=== PATIENT | female | born 1975 | race Caucasian/White ===

== ENCOUNTER 2022-10-30 10:09 | Outpatient (CLI) | payer BC, SELFPAY ==
[2022-10-30 13:46] LABS: Chloride* 98 mmol/L (96-114); Potassium* 4.9 mmol/L (3.6-5.1); Sodium* 136 mmol/L (135-149)
[2022-10-30 13:48] LABS: Alanine Aminotransferase* 30 U/L (4-35); Blood Urea Nitrogen* 16 mg/dL (5-24); Carbon Dioxide* 29 mmol/L (20-32); Cholesterol* 180 mg/dL (90-199); Creatinine* 0.5 mg/dL (0.5-1.5); Estimated Glomerular Filt Rate 119 ml/min
[2022-10-30 13:49] LABS: Calcium* 9.8 mg/dL (8.4-10.6); Glucose* 142 mg/dL (60-115); HDL Cholesterol* 49 mg/dL (>=50); LDL Cholesterol Calculated 84 mg/dL (<100); Triglycerides* 236 mg/dL (40-149)
== END 2022-10-30 10:10 | disposition home or self-care (01) ==
PROVIDERS: Visit Provider Family Medicine
DX: E03.9 Hypothyroidism, unspecified (principal); I10 Essential (primary) hypertension; E78.5 Hyperlipidemia, unspecified; E11.9 Type 2 diabetes mellitus without complications; E55.9 Vitamin D deficiency, unspecified; E78.2 Mixed hyperlipidemia
CPT/HCPCS: 80048; 80061; 84443; 84460

== ENCOUNTER 2023-01-16 10:03 | Outpatient (CLI) | payer BC, SELFPAY ==
--- NOTE | 2023-01-16 10:15 | CRLHL7_ITS ---
For Patients: As a result of the Century Cures Act, medical imaging exams and procedure reports are released immediately into your electronic medical record. You may view this report before your referring provider. If you have questions, please contact your health care provider. BILATERAL SCREENING MAMMOGRAM WITH COMPUTER-AIDED DETECTION TECHNIQUE: CC and MLO views were obtained. These mammographic images have been obtained using full-field digital technique. These mammographic images were interpreted with the benefit of computer-aided detection. COMPARISON FILM: 02/22/2021, 01/16/2018. FINDINGS: There are scattered areas of fibroglandular density IMPRESSION: There is no radiographic evidence for malignancy. ASSESSMENT: BI-RADS Category 1: Negative RECOMMENDATION: Routine screening mammogram in 1 year. A lay language report of this examination will be provided to the patient. Tito Aguila M.D. Diagnostic/Nuclear Medicine Radiologist [email or web address] FAUZIA/Dictated by: Tito Aguila MD @ 01/16/2023 11:30:00 AM (Electronically Signed)
== END 2023-01-16 10:04 | disposition home or self-care (01) ==
LOC: MAMMO 10:04
PROVIDERS: Visit Provider Family Medicine
DX: Z12.31 Encounter for screening mammogram for malignant neoplasm of breast (principal)
CPT/HCPCS: 77063; 77067

== ENCOUNTER 2023-04-25 08:58 | Outpatient (CLI) | payer BC, SELFPAY ==
--- NOTE | 2023-04-25 09:15 | CRLHL7_ITS ---
For Patients: As a result of the Century Cures Act, medical imaging exams and procedure reports are released immediately into your electronic medical record. You may view this report before your referring provider. If you have questions, please contact your health care provider. HISTORY: Right knee pain. TECHNIQUE: Noncontrast MRI of the right knee. COMPARISON: Radiographs from 04/17/2023. FINDINGS: Medial compartment: Medial meniscus: There are sequelae of prior tearing of the posterior horn of the medial meniscus with the tear spanning an approximately 13 mm medial/lateral extent of the meniscus with associated meniscal attenuation and fraying. Tear is noted on coronal STIR image #23 of series 5 and sagittal T2 fat-sat image #20 of series 10 for example. The meniscal tear results in loss of meniscal hoop stress with severe medial extrusion of medial meniscal body. Anterior horn of meniscus closer to the root is frayed. Articular cartilage: Marginal osteophyte formation. There is high-grade medial femoral condyle articular cartilage wear (grade 3/4). Full-thickness cartilage loss involving medial tibial plateau medially with subchondral bone marrow edema (grade 4). - Lateral compartment: Lateral meniscus: Degenerative undersurface and free edge meniscal tearing of the posterior horn of the lateral meniscus extending towards the posterior horn root. There is some low signal tissue present posterior to the posterior horn of lateral meniscus on sagittal T2 fat-sat #10 of series 10 which may reflect a small displaced meniscal flap. Articular cartilage: Marginal osteophyte formation. There is high-grade cartilage loss involving the lateral femoral condyle and lateral tibial plateau (grade 3/4). - Patellofemoral compartment: Marginal osteophyte formation with high-grade chondromalacia within the patellofemoral compartment (grade 3). - Ligaments: Mucoid degeneration of the ACL. Posterior cruciate ligament intact. Medial collateral ligament intact. Lateral collateral complex intact. - Extensor mechanism: Distal quadriceps tendon is intact. Minor tendinosis of the proximal and distal aspects of the patellar tendon. Medial and lateral patellar restraints are intact. No patellar subluxation or edmar. - Joint space: Small joint effusion with synovitis. - Bones and soft tissues: No acute fracture or avascular necrosis. 3.6 x 1.4 x 2.4 cm popliteal cyst is present. There is subcutaneous edema. IMPRESSION: 1. Advanced degenerative arthrosis of the right knee with areas of full-thickness grade 4 cartilage abnormality. 2. Tearing of the posterior horn of the medial meniscus with loss of meniscal hoop stress. 3. Tearing of the posterior horn of the lateral meniscus. 4. Mucoid degeneration of the ACL. 5. Small knee joint effusion with synovitis. 6. Popliteal cyst. Dictated by Jovanni Thakkar MD @ 04/25/2023 3:36:14 PM (Electronically Signed)
== END 2023-04-25 08:59 | disposition home or self-care (01) ==
LOC: MRI 08:59
PROVIDERS: PCP Family Medicine; Visit Provider Family Medicine
DX: M25.561 Pain in right knee (principal); M17.11 Unilateral primary osteoarthritis, right knee; S83.241A Other tear of medial meniscus, current injury, right knee, initial encounter; S83.281A Other tear of lateral meniscus, current injury, right knee, initial encounter; M25.461 Effusion, right knee; M71.21 Synovial cyst of popliteal space [Baker], right knee
CPT/HCPCS: 73721

== ENCOUNTER 2023-06-10 11:25 | Outpatient (CLI) | payer BC, SELFPAY | END 2023-06-10 11:26 | disposition home or self-care (01) | PROVIDERS: PCP Family Medicine; Visit Provider Family Medicine | DX: Z01.818 Encounter for other preprocedural examination (principal) | CPT/HCPCS: 80048; 85025 ==

== ENCOUNTER 2023-06-12 09:30 | Outpatient (RCR) | payer BC, SELFPAY | END 2023-09-26 11:21 | disposition home or self-care (01) | PROVIDERS: PCP Family Medicine; Visit Provider Orthopaedic Surgery | DX: M17.11 Unilateral primary osteoarthritis, right knee (principal); M25.561 Pain in right knee; Z51.89 Encounter for other specified aftercare | CPT/HCPCS: 97161 ==

== ENCOUNTER 2023-06-17 08:17 | Day surgery (SDC) | payer BC, SELFPAY ==
[2023-06-17] VITALS (24 sets, daily range): BP systolic 86–118; BP diastolic 49–72; PULSE 69–95; RESP 12–16; TEMP 36.1–36.8; O2SAT 91–98; BMI 41.5
[2023-06-17] MEDS: CELECOXIB 200 MG CAPSULE PO (08:01)
[2023-06-17] MEDS: ACETAMINOPHEN 500 MG TABLET 1000 MG PO ×3 (08:01→22:24)
[2023-06-17] MEDS: OXYCODONE (CR) 10 MG TAB.ER.12H PO (08:01)
[2023-06-17] MEDS: LACTATED RINGERS 1000 ML 1,000 ML 100 ML IV ×2 (09:05→10:25)
--- NOTE | 2023-06-17 09:25 | SUR.PREOP ---
TIME?OUT:?924 PT/RN/MDA?VERIFICATION?OF?SURGICAL?SITE,?PROCEDURE,?AND?CONSENT OBTAINED?PRIOR?TO?INVASIVE?PROCEDURE.
[2023-06-17] MEDS: fentaNYL 100 MCG/2 ML inj IVP (09:26)
[2023-06-17] MEDS: MIDAZOLAM HCL 1 MG/ML inj IVP (09:26)
[2023-06-17] MEDS: CEFAZOLIN 2 GM INJ IVP (09:45)
[2023-06-17] MEDS: TRANEXAMIC ACID 100 MG/ML INJ 1000 MG IV (09:50)
--- NOTE | 2023-06-17 10:07 | SUR.OPER ---
PATIENT QUESTIONS ANSWERED SATISFACTORILY PREOPERATIVELY.? PATIENT BROUGHT TO OR #2 PER CART AFTER ADMINISTRATION OF A BLOCK.? Patient positioned supine on OR #2 bed.? The perioperative?team supported arms bilaterally on arm boards.? Final approval of positioning by surgeon.?
--- NOTE | 2023-06-17 11:06 | CRLHL7_ITS ---
For Patients: As a result of the Century Cures Act, medical imaging exams and procedure reports are released immediately into your electronic medical record. You may view this report before your referring provider. If you have questions, please contact your health care provider. INDICATION: Follow up a right knee arthroplasty. TECHNIQUE: Two portable postoperative views of the right knee. FINDINGS: Right knee arthroplasty. Patellar resurfacing. The components are adequately aligned and well seated. Air within the soft tissues and joint space related to the surgery. IMPRESSION: Postsurgical change from a right total knee arthroplasty. The components are adequately aligned and well seated. Dictated by Tito Aguila MD @ 06/17/2023 12:11:01 PM (Electronically Signed)
--- NOTE | 2023-06-17 11:07 | PM.ORPRC ---
Procedure Note Date of procedure: 06/17/23 Procedure: PREOPERATIVE DIAGNOSIS: Right knee osteoarthritis POSTOPERATIVE DIAGNOSIS: Right knee osteoarthritis NAME OF OPERATION: Right total knee arthroplasty SURGEON: Erasto Wick MD SALES STOCK ASSOCIATE: MAY Perez ANESTHESIA: Spinal ESTIMATED BLOOD LOSS: 0 mL COMPLICATIONS: None SPECIMENS: None DRAINS: None PREOPERATIVE ANTIBIOTICS: Ancef 2 grams, antibiotic impregnated cement IMPLANTS: 1. J&J Attune revision CRS #6 posterior stabilized femur, with a 14 mm x 50 mm cemented stem 2. #6 revision CRS fixed-bearing tibia, with a 14 mm x 50 mm cemented stem 3. #6 posterior stabilized, 5 mm fixed-bearing polyethylene 4. 35 patella INDICATIONS: The patient is a 47-year-old with a longstanding history of severe, unrelenting right knee pain secondary to end-stage (grade IV) right knee osteoarthritis. Despite appropriate nonoperative management, including activity modification, anti-inflammatories, [id number] pain medication, bracing, physical therapy, and injections they continue to have pain and disability. Operative intervention was offered. The risks, benefits and expected outcomes were discussed in detail. These included but were not limited to: Infection, bleeding, injury to blood vessel or nerve, venous thromboembolism. All questions were answered to their satisfaction. Use of an assistant plant manager was necessary throughout the case for patient positioning and safety, soft tissue retraction, and closure. PROCEDURE: Spinal anesthesia was administered. The patient was placed supine on the operating table. The assistant plant manager made sure the patient was positioned appropriately. The lower extremity was prepped and draped in the usual sterile fashion. The limb was exsanguinated with the Shiv bandage. The pneumatic tourniquet was inflated to 300 mmHg. A standard anterior incision was made with the knee in flexion. Subcutaneous dissection was sharply taken through fascial layer #1. Full-thickness medial and lateral flaps were elevated. The assistant plant manager retracted the soft tissues and protected them throughout the case. A standard medial parapatellar approach was made. The patella was everted. The infrapatellar fat pad was preserved. The menisci and cruciate ligaments were sharply d?brided. Marginal osteophytes were d?brided with the rongeur. The drill was used to penetrate the femoral canal. The canal was aspirated and irrigated with pulse lavage. The intramedullary femoral guide was placed for a 5-degree valgus cut, removing 10 mm off the distal femur. The saw was used to make the cut. Whitesides line and the trans epicondylar axis were marked. The femoral sizing guide was pinned onto the distal femur. Three degrees of external rotation nicely parallels the transepicondylar axis. Pins were placed for posterior referencing. The four-in-one cutting guide was pinned onto the distal femur. The anterior, posterior, and chamfer cuts were made. The assistant plant manager protected the collateral ligaments. The trial femur was pinned. The box cuts were made. The drill was used x2. The boxed trial was placed and was an excellent fit. Attention was then turned to the proximal tibia. The extramedullary tibial guide was placed for a neutral varus/valgus cut with 5 degrees of posterior slope, removing 2 mm based off the medial tibial surface. The assistant plant manager protected the collateral ligaments and the neurovascular bundle. The saw was used to make the cut. Trial components were placed. The knee was nicely balanced in both flexion and extension. The trial components were removed. The tray was placed in appropriate rotation, parallel to our tibial cutting pins. It was pinned by the assistant plant manager and the drill x2 was used. The stemmed tibial trial was placed. The punch was used. The tray was removed. The punch was used again. Attention was then turned to the patella. [place] patellar thickness was 21 mm. The lobster claw resection guide was used with the 7.5 mm laura. The saw was used to make the cut. Drill holes were made by the assistant plant manager. The trial was placed and was an excellent fit. Cancellous surfaces were irrigated with pulse lavage and thoroughly dried by the assistant plant manager. We cemented the tibial component, then the femoral component. We impacted the 5 mm polyethylene onto the tibial tray. The knee was brought into full extension. We then cemented the patellar component. Excessive cement was removed. The cement was allowed to harden. The knee was taken through a range of motion and was found to be nicely balanced in both flexion and extension. The patella tracks centrally. The assistant plant manager did a three minute dilute Betadine solution soak. The assistant plant manager irrigated the wound with 3 liters of normal saline via pulse lavage. The assistant plant manager reapproximated the extensor mechanism with #1 Vicryl in an interrupted ufyhci-[id number] fashion. The assistant plant manager then ran the extensor mechanism with a #1 PDO Stratafix. The assistant plant manager closed the subcutaneous tissues with a 3-0 Stratafix and the skin with a running 3-0 Stratafix in a subcuticular fashion. Glue was used to seal the skin. The assistant plant manager placed a dry dressing, JOSE ALEJANDRO stocking, and Polar Care. Sponge and needle counts were correct x2. The patient tolerated the procedure well. There were no apparent complications. They were carefully transferred to the hospital bed and taken to the postanesthesia care unit in satisfactory condition. PLAN: The patient will be mobilized with physical therapy. Aspirin will be used for DVT prophylaxis. They will be discharged to home once medically appropriate.
--- NOTE | 2023-06-17 11:51 | W.ANESCHARGE ---
Anesthesia Charges Start Date/Time Anesthesia Start Date: 06/17/23 Anesthesia Start Time: 09:37 Stop Date/Time Anesthesia Stop Date: 06/17/23 Anesthesia Stop Time: 11:51
[2023-06-17] MEDS: PHENYLEPHRINE 100 MCG/ML SYRINGE IVP (12:05)
--- NOTE | 2023-06-17 13:08 | W.ANESCHARGE ---
Anesthesia Charges Start Date/Time Anesthesia Start Date: 06/17/23 Anesthesia Start Time: 09:37 Stop Date/Time Anesthesia Stop Date: 06/17/23 Anesthesia Stop Time: 11:51
--- NOTE | 2023-06-17 13:12 | P.NB_ITS ---
Nerve Block Nerve Block Time Seen by Provider: 09:29 Date Seen: 06/17/23 Type of block requested by surgeon for post-operative analgesia: geniculars Side: right Time out performed: Yes Verification of patient name: Yes Verification of date of : Yes Site marking: site marked Name of person performing procedure: Phil Continuous monitoring Was continuous monitoring of O2 sat, B/P, independent living advisor, recorded every 15 minutes?: Yes Procedure Checklist: sterile prep, needles and gloves Medications given in 5ml increments after negative aspiration: Ropivicaine %: 0.5 mL: 9 Needle gauge: 25 Patient tolerated procedure well: Yes Block Charges Block Charge (with Pro Fee): Genicular Nerve Block Use of Ultrasound Machine for Block: No
--- NOTE | 2023-06-17 13:12 | W.PM.NB ---
Nerve Block Nerve Block Time Seen by Provider: 09:29 Date Seen: 06/17/23 Type of block requested by surgeon for post-operative analgesia: adductor canal Side: right Time out performed: Yes Verification of patient name: Yes Verification of date of : Yes Site marking: site marked Name of person performing procedure: Phil Continuous monitoring Was continuous monitoring of O2 sat, B/P, conveyor monitor, recorded every 15 minutes?: Yes Procedure Checklist: sterile prep, needles and gloves Ultrasound guided. Images saved: Yes Medications given in 5ml increments after negative aspiration: Ropivicaine %: 0.5 mL: 20 Needle gauge: 20 Decadron (mg): 10 Precedex (mcg): 25 Patient tolerated procedure well: Yes Additional comments: Needle noted adjacent to nerve Block Charges Block Charge (with Pro Fee): Femoral Nerve Use of Ultrasound Machine for Block: Yes- US Guidance/pain block
--- NOTE | 2023-06-17 15:21 | PM.IMCN1 ---
Date of Consult Patient: [facility] Patient Consult date: 06/17/23 Requesting Physician: Orthopedics Primary Care Provider: Alexis Moreno MD Consult Narrative Reason for consult: Medical management Narrative: Rach Kearney is a 47 year old female past medical history significant for hypertension, hyperlipidemia, hypothyroidism, diabetes mellitus not insulin dependent, previous left TKA is POD#0 s/p right total knee arthroplasty. Patient reports pain is currently well managed. Denies nausea, tolerating orals. Reports this postoperative period is better than previous. There have been no perioperative complications or nursing concerns reported. Mild hypotension perioperatively, asymptomatic. Estimated total blood loss documented as 0 ml. Updated and reviewed the active medical problems, past medical history, past surgical history, social history, allergies and medications in our electronic EMR. Review of Systems Narrative: REVIEW OF SYSTEMS: Complete review of systems performed and negative unless otherwise stated in HPI or below. PFSH PFS Medical History Type 2 diabetes mellitus, without long-term current use of insulin ?E11.9 - Type 2 diabetes mellitus without complications (ICD-10) Mixed hyperlipidemia ?E78.2 - Mixed hyperlipidemia (ICD-10) Primary hypertension ?I10 - Essential (primary) hypertension (ICD-10) Scalp psoriasis ?L40.9 - Psoriasis, unspecified (ICD-10) Hemorrhoids ?K64.9 - Unspecified hemorrhoids (ICD-10) Body mass index (BMI) of 40.0 to 44.9 in adult ?Z68.41 - Body mass index [BMI] 40.0-44.9, adult (ICD-10) Vitamin D deficiency (02/26/11) ?E55.9 - Vitamin D deficiency, unspecified (ICD-10) Osteoarthritis of both knees ?M17.0 - Bilateral primary osteoarthritis of knee (ICD-10) Hypothyroidism ?E03.9 - Hypothyroidism, unspecified (ICD-10) Surgical History Status post left knee replacement (08/15/20) ?Z96.652 - Presence of left artificial knee joint (ICD-10) History of laparoscopic cholecystectomy (10/2006) ?Z90.49 - Acquired absence of other specified parts of digestive tract (ICD-10) Family History Daughter Anorexia nervosa Father Bipolar 1 disorder Diabetes Mother Breast cancer Sister Bipolar 1 disorder Social History Narrative: 3-children Non-smoker 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, 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 What is your current living situation?: I presently have a place to live Problems where you live: no known problems In the past 12 months, utilities in danger of being shut off: no In past 12 months, lack of transportation kept you from medical appts, meetings, work, or getting things needed for daily living: no In the past 12 mos, have been you worried that your food would run out before you had money to buy more?: never true In the past 12 mos, the food you bought just didn't last and you didn't have money to buy more?: never true Smoking Status: Never smoker How often does anyone, including family, friends and others, physically hurt you: never How often does anyone, including family, friends and others, insult or talk down to you: never How often does anyone, including family, friends and others, threaten you with harm: never How often does anyone, including family, friends and others, scream or curse at you: never Little interest or pleasure in doing things: not at all Feeling down, depressed, or hopeless: not at all Meds Home Medications and Allergies Home Medications Medication Instructions Recorded Confirmed Type atorvastatin 10 mg tablet 10 mg PO HS 06/17/23 06/17/23 History Allergies Allergy/AdvReac Type Severity Reaction Status Date / Time adhesive Allergy Mild Rash Verified 06/17/23 08:49 Penicillins Allergy Mild Rash Verified 06/17/23 08:49 Exam Narrative: Exam Narrative: PHYSICAL EXAM General: Pleasant, conversant, NAD HEENT: Normocephalic, atraumatic, sclera white, EOMI, oral mucosa moist Cardiovascular: RRR, S1S2. No pitting edema Pulmonary: CTA bilaterally without rhonchi, rales, expiratory wheezes. No dyspnea Abdominal: Soft, nondistended, NTTP Neurological: Alert, answering questions appropriately, cranial nerves intact, no focal findings Extremities: No gross joint deformity or swelling. Postoperative dressing in place, dry. Neurovascularly intact Skin: Warm, dry. Const: Vital Signs, click to edit/add: Vital Signs - 24 hr 06/17/23 09:10 06/17/23 09:25 06/17/23 09:30 Temperature 98.2 F Pulse Rate 77 72 70 Pulse Rate [Left P ulse Oximeter] Respiratory Rate 16 16 16 Blood Pressure 111/71 118/72 110/66 Blood Pressure [Ri ght Arm] Pulse Oximetry 95 95 97 Oxygen Delivery Me thod Room Air Nasal Cannula Nasal Cannula Oxygen Flow Rate 2 2 06/17/23 09:35 06/17/23 11:46 06/17/23 11:50 Temperature 97.8 F Pulse Rate 74 76 73 Pulse Rate [Left P ulse Oximeter] Respiratory Rate 16 16 14 Blood Pressure 105/64 89/49 L 90/52 L Blood Pressure [Ri ght Arm] Pulse Oximetry 97 93 92 Oxygen Delivery Me thod Nasal Cannula Room Air Oxygen Flow Rate 2 06/17/23 11:55 06/17/23 12:00 06/17/23 12:05 Temperature Pulse Rate 77 71 70 Pulse Rate [Left P ulse Oximeter] Respiratory Rate 14 12 12 Blood Pressure 96/57 L 97/49 L 86/57 L Blood Pressure [Ri ght Arm] Pulse Oximetry 94 94 97 Oxygen Delivery Me thod Oxygen Flow Rate 06/17/23 12:10 06/17/23 12:15 06/17/23 12:24 Temperature 97.9 F 97.2 F L Pulse Rate 71 71 70 Pulse Rate [Left P ulse Oximeter] Respiratory Rate 14 12 16 Blood Pressure 98/60 100/59 L Blood Pressure [Ri ght Arm] 104/60 Pulse Oximetry 94 94 Oxygen Delivery Me thod Room Air Oxygen Flow Rate 0 06/17/23 12:24 06/17/23 12:30 06/17/23 12:45 Temperature 97.2 F L 96.9 F L 97.1 F L Pulse Rate Pulse Rate [Left P ulse Oximeter] 75 70 Respiratory Rate 16 16 16 Blood Pressure Blood Pressure [Ri ght Arm] 104/60 95/60 90/61 Pulse Oximetry 94 95 95 Oxygen Delivery Me thod Room Air Room Air Room Air Oxygen Flow Rate 0 0 0 06/17/23 13:00 06/17/23 13:15 06/17/23 13:45 Temperature 97.5 F L 97.3 F L 97.1 F L Pulse Rate Pulse Rate [Left P ulse Oximeter] 69 72 73 Respiratory Rate 16 16 14 Blood Pressure Blood Pressure [Ri ght Arm] 97/54 L 94/54 L 90/65 Pulse Oximetry 95 98 96 Oxygen Delivery Me thod Room Air Room Air Nasal Cannula Oxygen Flow Rate 0 0 2 Assessment and Plan Assessment and plan (1) Osteoarthritis of right knee: Problem comment: -POD#0 s/p right TKA -perioperative management including pain management and anticoagulation per Orthopedic surgery -encourage postoperative pulmonary hygiene -PT OT consults -plan to discharge home with [] tomorrow Status: Acute (2) Type 2 diabetes mellitus, without long-term current use of insulin: Problem comment: -most recent A1c 7 -hold Trulicity, metformin - resume upon discharge -recommend diabetic diet, glucose checks ACHS to monitor -h/o hyperglycemia with meds. Will push oral fluids. Does not want insulin. IVF boluses if needed Status: Acute (3) Primary hypertension: Problem comment: -blood pressures soft perioperatively, continue to monitor, saline boluses p.r.n. -resume lisinopril hydrochlorothiazide upon discharge. Could consider morning dose if necessary. -of note blood pressure during preop physical 1 week ago was 108/70 so current pressures near baseline Status: Acute (4) Mixed hyperlipidemia: Problem comment: -resume statin upon discharge Status: Acute (5) Hypothyroidism: Problem comment: -resume levothyroxine upon discharge Status: Acute Plan Hospital medicine team will sign off. Please contact our service with any questions or concerns.
[2023-06-17] MEDS: CEFAZOLIN 2 GM in 0.9 % SODIUM CHLORIDE Mini-bag 100 ML IVPB (16:12)
[2023-06-17] MEDS: LACTATED RINGERS 1000 ML 1,000 ML 75 ML IV (16:12)
--- NOTE | 2023-06-17 19:50 | PC.NURSE ---
Pt arrived to floor from surgery around 1224pm. Pt alert and oriented. Pt had no complaints of pain. Pt advanced to regular diet; tolerated well. Pt up to chair. Pt SBA with walker and gait belt. Pt's dressing dry and intact. Pt had soft blood pressures post surgery but was asymptomatic; hospitalist notified. Pt was placed on 2L's of oxygen post surgery due to O2 saturations dropping while Pt was sleeping. O2 removed around 15 and Pt tolerated RA.
[2023-06-17] MEDS: OXYCODONE 5 MG TABLET PO (20:58)
[2023-06-17] MEDS: SENNOSIDES 1 TAB TABLET 2 TAB PO (20:58)
[2023-06-17] MEDS: ASPIRIN 81 MG TABLET EC PO (20:58)
[2023-06-18] MEDS: CEFAZOLIN 2 GM in 0.9 % SODIUM CHLORIDE Mini-bag 100 ML IVPB
[2023-06-18 03:00] VITALS: BP 104/68; PULSE 82; RESP 16; TEMP 36.6; O2SAT 92
[2023-06-18] MEDS: ACETAMINOPHEN 500 MG TABLET 1000 MG PO ×2 (03:12→09:27)
[2023-06-18] MEDS: OXYCODONE 5 MG TABLET PO ×3 (05:25→08:05)
--- NOTE | 2023-06-18 05:34 | PC.NURSE ---
Pt A&O, afebrile and VSS overnight. Pt ambulates SBA with GB and 2WW. IV cefazolin completed overnight. PIV in left hand SL and C/D/I. Right knee dressing C/D/I. Cryo-cuff in place. Reports pain is 3-4/10 overnight, received PRN oxycodone x3 doses (last dose @ 0525) and scheduled Tylenol. Adequate output and tolerating PO intake post-op. Plans to discharge home today 06/18.?
[2023-06-18 06:11] LABS: Basophils Percent Auto 0.1 % (0.0-3.0); Hematocrit 35.9 % (33.0-51.0); Hemoglobin* 11.8 gm/dL (12.0-16.0); Immature Granulocytes Pct Auto 0.8 %; Lymphocytes Percent Auto 8.5 % (20-44); Mean Corpuscular HGB Conc 33 gm/dL (32-36); Mean Corpuscular Hemoglobin 30 pg (26-34); Mean Corpuscular Volume 91 fL (80-100); Monocytes Percent Auto 4.3 % (0.0-11.0); Neutrophils Percent Auto 86.3 % (42.0-72.0); Platelet Count* 318 K/uL (140-440); Red Blood Count 3.96 m/uL (4.00-5.20); White Blood Count* 16.83 K/uL (4.50-11.00)
[2023-06-18 06:20] LABS: Potassium* 4.5 mmol/L (3.6-5.1); Sodium* 134 mmol/L (135-149)
[2023-06-18 06:23] LABS: Creatinine* 0.5 mg/dL (0.5-1.5); Estimated Glomerular Filt Rate 118 ml/min
[2023-06-18 06:24] LABS: Blood Urea Nitrogen* 15 mg/dL (5-24)
[2023-06-18 06:30] LABS: Slide Review Reflex No
[2023-06-18 06:36] LABS: INR 1.14 (0.91-1.10); Prothrombin Time 15.3 Seconds
[2023-06-18 07:58] VITALS: BP 109/71; PULSE 85; RESP 18; TEMP 36.8; O2SAT 94
--- NOTE | 2023-06-18 09:02 | PM.ORPN ---
Subjective Subjective Time Seen by Provider: 07:40 Date Seen: 06/18/23 Principal diagnosis: Status post right knee replacement Interval history: Aura is comfortable this morning. She feels her knee pain is much less than it was postoperatively on the left previously. She is happy she is able to straight leg raise. Ortho Exam Narrative Exam Narrative: Alert and oriented x3. Patient is in no acute distress. Converses without labored breathing. Hearing is grossly intact. Ambulates with a walker. Examination of the right knee shows the dressing is intact. Minimal soft tissue edema. Minimal effusion. Able to straight leg raise. CMS intact right lower extremity. No erythema or warmth or sign of infection. Const Vital Signs, click to edit/add: Vital Signs - 24 hr 06/17/23 09:10 06/17/23 09:25 06/17/23 09:30 Temperature 98.2 F Pulse Rate 77 72 70 Pulse Rate [Left Pulse Oximeter] Respiratory Rate 16 16 16 Blood Pressure 111/71 118/72 110/66 Blood Pressure [Left Arm] Blood Pressure [Right Arm] Pulse Oximetry 95 95 97 Oxygen Delivery Method Room Air Nasal Cannula Nasal Cannula Oxygen Flow Rate 2 2 06/17/23 09:35 06/17/23 11:46 06/17/23 11:50 Temperature 97.8 F Pulse Rate 74 76 73 Pulse Rate [Left Pulse Oximeter] Respiratory Rate 16 16 14 Blood Pressure 105/64 89/49 L 90/52 L Blood Pressure [Left Arm] Blood Pressure [Right Arm] Pulse Oximetry 97 93 92 Oxygen Delivery Method Nasal Cannula Room Air Oxygen Flow Rate 2 06/17/23 11:55 06/17/23 12:00 06/17/23 12:05 Temperature Pulse Rate 77 71 70 Pulse Rate [Left Pulse Oximeter] Respiratory Rate 14 12 12 Blood Pressure 96/57 L 97/49 L 86/57 L Blood Pressure [Left Arm] Blood Pressure [Right Arm] Pulse Oximetry 94 94 97 Oxygen Delivery Method Oxygen Flow Rate 06/17/23 12:10 06/17/23 12:15 06/17/23 12:24 Temperature 97.9 F 97.2 F L Pulse Rate 71 71 70 Pulse Rate [Left Pulse Oximeter] Respiratory Rate 14 12 16 Blood Pressure 98/60 100/59 L Blood Pressure [Left Arm] Blood Pressure [Right Arm] 104/60 Pulse Oximetry 94 94 Oxygen Delivery Method Room Air Oxygen Flow Rate 0 12/19/23 12:24 06/17/23 12:30 06/17/23 12:45 Temperature 97.2 F L 96.9 F L 97.1 F L Pulse Rate Pulse Rate [Left Pulse Oximeter] 75 70 Respiratory Rate 16 16 16 Blood Pressure Blood Pressure [Left Arm] Blood Pressure [Right Arm] 104/60 95/60 90/61 Pulse Oximetry 94 95 95 Oxygen Delivery Method Room Air Room Air Room Air Oxygen Flow Rate 0 0 0 06/17/23 13:00 06/17/23 13:15 06/17/23 13:45 Temperature 97.5 F L 97.3 F L 97.1 F L Pulse Rate Pulse Rate [Left Pulse Oximeter] 69 72 73 Respiratory Rate 16 16 14 Blood Pressure Blood Pressure [Left Arm] Blood Pressure [Right Arm] 97/54 L 94/54 L 90/65 Pulse Oximetry 95 98 96 Oxygen Delivery Method Room Air Room Air Nasal Cannula Oxygen Flow Rate 0 0 2 06/17/23 14:15 06/17/23 15:15 06/17/23 16:15 Temperature 97.3 F L 97.5 F L 98.2 F Pulse Rate Pulse Rate [Left Pulse Oximeter] 72 88 81 Respiratory Rate 16 16 16 Blood Pressure Blood Pressure [Left Arm] Blood Pressure [Right Arm] 92/58 L 106/65 102/64 Pulse Oximetry 94 93 91 Oxygen Delivery Method Nasal Cannula Room Air Room Air Oxygen Flow Rate 2 0 0 06/17/23 17:15 06/17/23 18:00 06/17/23 19:00 Temperature 97.8 F 97.9 F 98.3 F Pulse Rate Pulse Rate [Left Pulse Oximeter] 71 95 88 Respiratory Rate 16 16 16 Blood Pressure Blood Pressure [Left Arm] 102/63 Blood Pressure [Right Arm] 109/62 113/59 L Pulse Oximetry 97 91 92 Oxygen Delivery Method Room Air Room Air Room Air Oxygen Flow Rate 0 0 06/17/23 23:00 06/17/23 23:00 06/18/23 03:00 Temperature 97.8 F 98 F Pulse Rate Pulse Rate [Left Pulse Oximeter] 76 82 Respiratory Rate 16 16 16 Blood Pressure Blood Pressure [Left Arm] Blood Pressure [Right Arm] 103/59 L 104/68 Pulse Oximetry 95 92 Oxygen Delivery Method Room Air Room Air Oxygen Flow Rate 06/18/23 07:58 Temperature 98.3 F Pulse Rate Pulse Rate [Left Pulse Oximeter] 85 Respiratory Rate 18 Blood Pressure Blood Pressure [Left Arm] Blood Pressure [Right Arm] 109/71 Pulse Oximetry 94 Oxygen Delivery Method Room Air Oxygen Flow Rate Assessment and Plan Assessment and plan (1) Status post right knee replacement: Problem details: 06/17/2020 Status: Acute Assessment and Plan: Plan for discharge is today to home if they meet discharge criteria. DVT prophylaxis includes aspirin 81 mg twice daily x1 month, Benitez stockings x1 month may remove for 1 hr per day, frequent ambulation Remove dressing in 1 week. Observe wound and phone Orthopedics with any questions or concerns Return to clinic in 1 week for a wound check Return to clinic in 6 weeks with surgeon Minimize narcotic use. Wean off and discontinue soon as possible. Activities as tolerated. No strenuous activity. Outpatient physical therapy as scheduled. Ice and elevate the operative extremity. No restriction on ice.
[2023-06-18] MEDS: SENNOSIDES 1 TAB TABLET 2 TAB PO (09:26)
[2023-06-18] MEDS: ASPIRIN 81 MG TABLET EC PO (09:26)
--- NOTE | 2023-06-18 10:41 | PC.NURSE ---
Pt discharged at 1030 today via private vehicle driven by after she worked with PT and OT. CMS to RLE noted to be intact and dressing to R knee noted to be C/D/I. Pt transferred with SBA using walker GB. Pain controlled with scheduled Tylenol and PRN Oxycodone.
== END 2023-06-18 10:30 | disposition home or self-care (01) ==
LOC: OR 08:18 → MEDSURG 08:20
PROVIDERS: PCP Family Medicine; Visit Provider Orthopaedic Surgery
PROC: (CPT 27447; principal; 2023-06-17 10:15)
DX: M17.11 Unilateral primary osteoarthritis, right knee (principal); G89.18 Other acute postprocedural pain; I10 Essential (primary) hypertension; E11.9 Type 2 diabetes mellitus without complications; E03.9 Hypothyroidism, unspecified; E78.2 Mixed hyperlipidemia
CPT/HCPCS: 27447; 01402; 36415; 64447; 64454; 73560; 76942; 82565; 82962; 84132; 84295; 84520; 85025; 85610; 97110; 97116; 97161; 97165; 97530; 97535; A9270; C1776; J0690; J1100; J2250; J2371; J2405; J2704; J3010; J7120

== ENCOUNTER 2023-11-11 09:32 | Outpatient (CLI) | payer BC, SELFPAY ==
--- OUTSIDE RECORDS SUMMARY | 2023-11-11 09:36 | XMS_ITS | Clinical Summary ---
Author Name Unknown Organization [facility] Address [place], [place] [address] Care Team Providers Care Dye Reel Operator Helper Name Role Phone Pcp, No Primary Care Provider Unavailabl e Allergies Active Allergy Reactions Criticality Noted Date Comments Penicillins Nausea Only 03/12/2007 Medications Medication Sig Dispensed Refills Start Date End Date Status levonorgestrel intrauterine device (MIRENA) 20 mcg/24 hour (5 years) IUD Inserted 10/12/13 0 10/13/2013 Active fluocinonide 0.05 TOPICAL (LIDEX) 0.05 % external solutionIndications :Scalp psoriasis Apply topically to affected area(s) 2 times daily. 2 Bottle 12 01/10/2015 Active HYDROcodone-acetami nophen, 5-325 mg, (NORCO) per tabletIndications:B ilateral low back pain without sciatica Take 1 tablet by mouth every 6 hours if needed for Pain. Max acetaminophen dose: 4000mg in 24 hrs. 30 tablet 0 10/05/2015 Active lancets 33 gauge miscIndications:Typ e 2 diabetes mellitus without complication (HC) As directed. Dispense item covered by pt ins. E11.9 NIDDM type II - Test 1 time/day 100 Each 3 10/16/2015 Active blood sugar diagnostic (BLOOD GLUCOSE TEST) stripIndications:Ty pe 2 diabetes mellitus without complication (HC) Dispense item covered by pt ins. E11.9 NIDDM type II - Test 1 time/day - One Touch 100 Strip 3 10/16/2015 Active levothyroxine (SYNTHROID) 88 mcg tabletIndications:H ypothyroidism, unspecified type Take 1 tablet by mouth once daily. 30 tablet 12 09/27/2016 Active lisinopril-hydrochl orothiazide, 20-25 mg, (PRINZIDE, ZESTORETIC) 20-25 mg per tabletIndications:H ypertension Take 1 tablet by mouth once daily. 30 tablet 12 09/27/2016 Active metFORMIN (GLUCOPHAGE XR) 500 mg Extended-Release tabletIndications:T ype 2 diabetes mellitus without complication, without long-term current use of insulin (HC) Take 2 tablets by mouth once daily with evening meal. 60 tablet 12 09/27/2016 Active Active Problems Problem Noted Date Diagnosed Date Primary osteoarthritis of both knees 09/29/2016 Type 2 diabetes mellitus without complication Hypertension 09/16/2015 Scalp psoriasis 10/13/2013 Vitamin D deficiency 02/26/2011 Hypothyroidism 06/18/2009 Immunizations Name Administration Dates Next Due Influenza A (H1N1), Inactiva brandon (Age >=3 Years) 06/15/2009 Influenza, IIV3 (Age >=3 years) 05/08/2010,06/15,04/21/2008 Tdap 11/13/2010 Family History Medical History Relation Name Comments Diabetes Father Cancer Maternal Aunt lung Cancer-breast Mother Diabetes Paternal Grandmother Relation Name Status Comments Father Maternal Aunt Maternal Uncle Mother Paternal Grandmother Social History Tobacco Use Types Packs/Day Years Used Date Smoking Tobacco: Never Smokeless Tobacco: Never Alcohol Use Standard Drinks/Week Comments Yes 0 (1 standard drink = 0.6 oz pur e alcohol) Occasional Sex and Gender Information Value Date Recorded Sex Assigned at Not on file Gender Identity Not on file Sexual Orientation Not on file Obstetrics History Para Term AB IAB SAB Ectopic Multiple Livin g Live Births 3 3 3 3 3 Date Outcome GA Total Labor Labor/2nd/3rd Weight Sex Delivery Anes PTL Mary A1 A5 Name Cl in 04/21 Term 39w 0d 3.35 kg (7 lb 6 oz) F Vag Bisi ng Bonnie Delivery Location:[place] 04/09 Term 37w 0d 3.29 kg (7 lb 4 oz) M Vag Bisi ng Ruiz Delivery Location:[place] Comments:Gest DM 09/05 Term 39w 0d 2.78 kg (6 lb 2 oz) F Vag Bisi ng Yun t Delivery Location:[place] Last Filed Vital Signs Vital Sign Reading Time Taken Comments Blood Pressure 136/88 09/26/2016 11:35 AM CDT Pulse 84 09/26/2016 11:35 AM CDT Temperature - - Respiratory Rate 18 09/26/2016 11:35 AM CDT Oxygen Saturation 98% 03/01/2015 2:11 PM CDT room air Inhaled Oxygen Concentration - - Weight 119.1 kg (262 lb 8 oz) 09/26/2016 11:35 A M CDT Height 162.6 cm (5' 4) 09/26/2016 11:35 AM CDT Body Mass Index 45.06 09/26/2016 11:35 AM CDT Plan of Treatment Health Maintenance Due Date Last Done Comments Hepatitis C screening for age 18-79 12/12/1995 Depression screening for age 12+ 09/14/2016 09/15/2015 BMI (ht and wt on same day) for age 18+ 09/26/2017 09/26/2016, 09/13/2015 Tetanus booster 11/13/2020 11/13/2010, 11/13/2010 Pap test for age 21-65 04/01/2022 9, 04/01/2019, 10/02/2018, Additional history exists Colonoscopy through age 75 2022 Lipids for age 45-75 2022 09/26/2016, 01/11/20 15 Mammogram for age 45-75 2022 COVID-19 vaccine series (2022- season) 2023 Influenza for age 9-49 02/29/2024 0, 06/15/2009, 06/15/2009, Additional history exists HIV for age 15-65 Completed 02/25/2008 Tdap Completed 11/13/2010 Pneumococcal series for age 6-64 Aged Out No longer eligible based on patient's age to complete this topic Goals Goal Patient Goal Type Associated Problems Recent Progress Patient-Stated? Author BLOOD PRESSURE - MAINTAINS BP less than 140/90 Blood Pressure Alexis Bo MD Procedures Procedure Name Priority Date/Time Associated Diagnosis Comments ENGINEERING INSTRUCTOR THIN PREP PAP SCREEN IMAGED Routine 04/01/2019 10:45 AM CDT LIPID PANEL W REFLEX MEASURED LDL Routine 09/26/2016 11:27 AM CDT Type 2 diabetes mellitus without complication, without long-term current use of insulin (HC) ANTI HIV 1/2 Routine 02/25/2008 10:59 AM CDT Supervision of Other Normal from Last 3 Months or Most Recently Relevant to Health Maintenance Results * ENGINEERING INSTRUCTOR THIN PREP PAP SCREEN IMAGED (04/01/2019 10:45 AM CDT) Case Report Gynecologic Cytology Report ? Case: [id number] ? Authorizing Provider: ??Alexis Moreno MD ??Collected: ? 04/01/2019 1045 ? Ordering Location: ? [facility] ?Received: ?04/01/2019 1851 ? First Screen: ?Oliver Vinson ? Specimen: ?ENGINEERING INSTRUCTOR ThinPrep Vial Screening, Cervical/Vaginal ? 04/12/2019 12:36 PM CDT [facility] ENTRAL LABORATORY INTERPRETATION/ RESULT NEGATIVE FOR INTRAEPITHELIAL LESION OR MALIGNANCY (NIL) (none) 04/12/2019 12:36 PM CDT [facility] IMEN ADEQUACY Satisfactory for evaluation Endocervical component present 04/12/2019 12:36 PM CDT [facility] EN[facility]AL LAB[facility]ATORY HPV REQUEST HPV and PAP 04/12/2019 12:36 PM CDT [facility] Date of LMP 03/21/2019 04/12/2019 12:36 PM CDT [facility] Last Pap Date 04/12/2019 12:36 PM CDT [facility] Comment:unk Last Pap Result NIL 12:36 PM CDT [facility] Automated Review Successful 04/12/2019 12:36 PM CDT [facility] Comment:Specimen processed s uccessfully by automated power distributor device, FlexisPrep Imaging System, [employer] ANCILLARY TESTING ENGINEERING INSTRUCTOR HPV Ordered, Please see separate report 04/12/2019 12:36 PM CDT [facility] Note The pap test is a screening technique, not a diagnostic procedure. ??It is used primarily to screen for squamous cancers and precursor lesions. ??Published studies have shown that it is subject to both false negative and false positive results. ??The pap test should not be used as the sole means to diagnose or exclude pre-malignant and malignant lesions. Cytology is screened and interpreted at [facility] - [address], [place] [address] and [facility] - [address]; [place] [address] [address] [facility] - [address]; [place] [address] and [facility] [address]; [place] [address] 04/12/2019 12:36 PM CDT [facility] Other (Cervical/Vagina l) 04/01/2019 10:45 AM CDT 04/01/2019 6:51 PM CDT Alexis Moreno MD PATHOLOGY/CYTOLO GY [facility] [address] [place] [address], [place] * (ABNORMAL) LIPID PANEL W REFLEX MEASURED LDL (09/26/2016 11:27 AM CDT) CHOLESTEROL,TOTAL 198 100 - 199 mg/dL 09/26/2016 12:09 PM CDT [facility] TRIGLYCERIDES 316(H) <150 mg/dL 09/26/2016 12:09 PM CDT [facility] HDL CHOLESTEROL 42 >40 mg/dL 7 12:09 PM CDT [facility] NON-HDL CHOLESTEROL 156(H) <145 mg/dl 09/26/2016 12:09 PM CDT [facility] CHOL/HDL RATIO 4.71(H) <4.50 09/26/2016 12:09 PM CDT [facility] LDL CHOLESTEROL 93 <=130 mg/dL 09/26/2016 12:09 PM CDT [facility] PATIENT STATUS FASTING 09/26/2016 12:09 PM CDT [facility] Blood BLOOD SPECIMEN / Unknown Venipuncture / Unknown 09/26/2016 11:27 AM CDT 09/26/2016 11:28 AM CDT Alexis Moreno MD CHEMISTRY [facility] [address] [place] [address], * ANTI HIV 1/2 (02/25/2008 10:59 AM CDT) ANTI HIV 1/2 Non-reacti ve [facility] Blood specimen (specimen) BLOOD SPECIMEN / Unknown 02/25/2008 10:59 AM CDT 02/25/2008 10:39 AM CDT Alexis Moreno MD SEND OUTS [facility] INTERNAL ZIP [id number] [address] from Last 3 Months or Most Recently Relevant to Health Maintenance Care Teams Dye Reel Operator Helper Relationship Specialty Start Date End Date Pcp, No . PCP - General 07/03/17
== END 2023-11-11 09:33 | disposition home or self-care (01) ==
PROVIDERS: PCP Family Medicine; Visit Provider Family Medicine
DX: E11.9 Type 2 diabetes mellitus without complications (principal); E78.2 Mixed hyperlipidemia; I10 Essential (primary) hypertension
CPT/HCPCS: 80061; 84443; 84460

== ENCOUNTER 2024-02-03 15:25 | Outpatient (CLI) | payer BC, SELFPAY ==
--- OUTSIDE RECORDS SUMMARY | 2024-02-03 15:28 | XMS_ITS | Clinical Summary ---
Author Organization [facility] Address [place], [place] [address] Care Team Providers Care Jack Machine Operator Name Role Phone Pcp, No Primary Care [...] Outcome GA Total Labor Labor/2nd/3rd Weight Sex Type Anes PTL Mary A1 A5 Name Clin 001 Term 39w 0d 3.35 kg (7 lb 6 oz) F Vag Livin g Bonnie Delivery Location:[place] 005 Term 37w 0d 3.29 kg (7 lb 4 oz) M Vag Livin g Ruiz Delivery Location:[place] Comments:Gest DM 009 Term 39w 0d 2.78 kg (6 lb 2 oz) F Vag Livin g Hariet Delivery Location:[place] Last Filed Vital Signs Vital Sign Reading [...] Procedure Name Priority Date/Time Associated Diagnosis Comments SOCKET WELDER HELPER THIN PREP PAP SCREEN IMAGED Routine 04/01/2019 10:45 AM CDT LIPID PANEL W REFLEX MEASURED LDL Routine 09/26/2016 11:27 AM CDT Type 2 diabetes mellitus without complication, without long-term current use of insulin (HC) ANTI HIV 1/2 Routine 02/25/2008 10:59 AM CDT Supervision of Other Normal from Last 3 Months or Most Recently Relevant to Health Maintenance Results * SOCKET WELDER HELPER THIN PREP PAP SCREEN IMAGED (04/01/2019 10:45 AM CDT) Case Report Gynecologic Cytology Report ? Case: [id number] ? Authorizing Provider: ??Alexis Moreno MD ??Collected: ? 04/01/2019 1045 ? Ordering Location: ? [facility] ?Received: ?04/01/2019 1851 ? First Screen: ?Oliver Vinson ? Specimen: ?SOCKET WELDER HELPER ThinPrep Vial Screening, Cervical/Vaginal ? 04/12/2019 12:36 PM CDT [facility]-C ENTRAL LABORATORY INTERPRETATION/ RESULT NEGATIVE FOR INTRAEPITHELIAL LESION OR MALIGNANCY (NIL) (none) 04/12/2019 12:36 PM CDT [facility] LAB[facility] IMEN ADEQUACY Satisfactory for evaluation Endocervical component present 04/12/2019 12:36 PM CDT [facility]-C ENTRAL LABORATORY HPV REQUEST HPV and PAP 04/12/2019 12:36 PM CDT [facility] Date of LMP 03/21/2019 04/12/2019 12:36 PM CDT [facility] Last Pap Date 04/12/2019 12:36 PM CDT [facility] Comment:unk Last Pap Result NIL 12:36 PM CDT [facility] Automated Review Successful 04/12/2019 12:36 PM CDT [facility] Comment:Specimen processed s uccessfully by automated biological inspector device, [employer] Imaging System, [employer] ANCILLARY TESTING SOCKET WELDER HELPER HPV Ordered, Please see separate report 04/12/2019 12:36 PM CDT [facility] Note The pap test is a [...] lesions. Cytology is screened and interpreted at [facility] - [address], [place] [address] and [facility] - [address]; [place] [address] and [facility] - [address]; [place] [address] and [facility] [address]; [place] [address] 04/12/2019 12:36 PM CDT [facility] Other (Cervical/Vagina l) 04/01/2019 10:45 AM CDT 04/01/2019 6:51 PM CDT Alexis Moreno MD PATHOLOGY/CYTOLO GY [facility] [address] [place] [address], [place] * (ABNORMAL) LIPID PANEL W REFLEX MEASURED LDL (09/26/2016 11:27 AM CDT) CHOLESTEROL,TOTAL 198 100 - 199 mg/dL 09/26/2016 12:09 PM CDT [facility] TRIGLYCERIDES 316(H) <150 mg/dL 09/26/2016 12:09 PM CDT [facility] HDL CHOLESTEROL 42 >40 mg/dL 7 12:09 PM CDT [facility] NON-HDL CHOLESTEROL 156(H) <145 mg/dl 09/26/2016 12:09 PM CDT [facility] CHOL/HDL RATIO 4.71(H) <4.50 09/26/2016 12:09 PM CDT [facility] LDL CHOLESTEROL 93 <=130 mg/dL 09/26/2016 12:09 PM CDT [facility] PATIENT STATUS FASTING 09/26/2016 12:09 PM CDT [facility] Blood BLOOD SPECIMEN / Unknown Venipuncture / Unknown 09/26/2016 11:27 AM CDT 09/26/2016 11:28 AM CDT Alexis Moreno MD CHEMISTRY [facility] [address] [place] [address], * ANTI HIV 1/2 (02/25/2008 10:59 AM CDT) ANTI HIV 1/2 Non-reacti ve [facility] Blood specimen (specimen) BLOOD SPECIMEN / Unknown 02/25/2008 10:59 AM CDT 02/25/2008 10:39 AM CDT Alexis Moreno MD SEND OUTS [facility] INTERNAL ZIP [id number] [address] from Last 3 Months or Most Recently Relevant to Health Maintenance Care Teams Jack Machine Operator Relationship Specialty Start Date End Date Pcp, No . PCP - General 07/03/17
--- NOTE | 2024-02-03 15:40 | CRLHL7_ITS ---
For Patients: As a result of the Century Cures Act, medical imaging exams and procedure reports are released immediately into your electronic medical record. You may view this report before your referring provider. If you have questions, please contact your health care provider. BILATERAL DIGITAL SCREENING MAMMOGRAM WITH COMPUTER-AIDED DETECTION AND TOMOSYNTHESIS CLINICAL HISTORY: Routine screening exam. COMPARISON: 01/16/23, 02/22/21, 01/16/18. TECHNIQUE: Digital mammogram in CC and MLO projections including computer-aided detection (CAD). Tomosynthesis was used in this interpretation. BREAST COMPOSITION: There are scattered areas of fibroglandular density. FINDINGS: RIGHT Breast: No suspicious findings. LEFT Breast: Focal asymmetric density lateral LEFT breast 7 cm from the nipple. IMPRESSION: LEFT breast asymmetry/mass. RECOMMENDATIONS: Additional mammographic views of the LEFT breast including 3D spot compression CC/MLO. LEFT breast ultrasound may also be required. BI-RADS Category 0: Incomplete: Need Additional Imaging Evaluation and/or Prior Mammograms for Comparison The [facility] will contact the patient for follow-up. A lay language report of this examination will be provided to the patient. Dictated by Alexis Frias MD @ 02/05/2024 10:09:16 AM geenaj/Dictated by: Alexis Frias MD @ 02/05/2024 10:09:00 AM (Electronically Signed)
== END 2024-02-03 15:26 | disposition home or self-care (01) ==
LOC: MAMMO 15:25
PROVIDERS: PCP Family Medicine; Visit Provider Family Medicine
DX: Z12.31 Encounter for screening mammogram for malignant neoplasm of breast (principal); N63.20 Unspecified lump in the left breast, unspecified quadrant
CPT/HCPCS: 77063; 77067

== ENCOUNTER 2024-02-10 09:27 | Outpatient (CLI) | payer BC, SELFPAY ==
--- OUTSIDE RECORDS SUMMARY | 2024-02-10 09:30 | XMS_ITS | Clinical Summary ---
Author Organization [facility] Address [place], [place] [address] Care Team Providers Care Package Clerk Name Role Phone Pcp, No Primary Care [...] oz) F Vag Livin g Bonnie Delivery Location:[place] 005 Term 37w 0d 3.29 kg (7 lb 4 oz) M Vag Livin g Ruiz Delivery Location:[place] Comments:Gest DM 009 Term 39w 0d 2.78 kg (6 lb 2 oz) F Vag Livin g Hariet Delivery Location:[place] Last Filed Vital Signs Vital Sign Reading [...] Procedure Name Priority Date/Time Associated Diagnosis Comments BOTANY PROFESSOR THIN PREP PAP SCREEN IMAGED Routine 04/01/2019 10:45 AM CDT LIPID PANEL W REFLEX MEASURED LDL Routine 09/26/2016 11:27 AM CDT Type 2 diabetes mellitus without complication, without long-term current use of insulin (HC) ANTI HIV 1/2 Routine 02/25/2008 10:59 AM CDT Supervision of Other Normal from Last 3 Months or Most Recently Relevant to Health Maintenance Results * BOTANY PROFESSOR THIN PREP PAP SCREEN IMAGED (04/01/2019 10:45 AM CDT) Case Report Gynecologic Cytology Report ? Case: [id number] ? Authorizing Provider: ??Alexis Moreno MD ??Collected: ? 04/01/2019 1045 ? Ordering Location: ? [facility] ?Received: ?04/01/2019 1851 ? First Screen: ?Oliver Vinson ? Specimen: ?BOTANY PROFESSOR ThinPrep Vial Screening, Cervical/Vaginal ? 04/12/2019 12:36 PM CDT [facility] INTERPRETATION/ RESULT NEGATIVE FOR INTRAEPITHELIAL LESION OR MALIGNANCY (NIL) (none) 04/12/2019 12:36 PM CDT [facility] IMEN ADEQUACY Satisfactory for evaluation Endocervical component present 04/12/2019 12:36 PM CDT [facility] HPV REQUEST HPV and PAP 04/12/2019 12:36 PM CDT [facility] Date of LMP 03/21/2019 04/12/2019 12:36 PM CDT [facility] Last Pap Date 04/12/2019 12:36 PM CDT [facility] Comment:unk Last Pap Result NIL 12:36 PM CDT [facility] Automated Review Successful 04/12/2019 12:36 PM CDT [facility] Comment:Specimen processed s uccessfully by automated records management analyst device, [employer] System, [employer] ANCILLARY TESTING BOTANY PROFESSOR HPV Ordered, Please see separate report 04/12/2019 12:36 PM CDT [facility] Note The pap test is [...] lesions. Cytology is screened and interpreted at [facility] - [address], [place] [address] and [facility] - [address]; [place] [address] and [facility] - [address]; [place] [address] and [facility] [address]; [place] [address] 04/12/2019 12:36 PM CDT [facility] Other (Cervical/Vagina l) 04/01/2019 10:45 AM CDT 04/01/2019 6:51 PM CDT Alexis Moreno MD PATHOLOGY/CYTOLO GY [facility] [address] [place] [address], [place] * (ABNORMAL) LIPID PANEL W REFLEX MEASURED LDL (09/26/2016 11:27 AM CDT) CHOLESTEROL,TOTAL 198 100 - 199 mg/dL 09/26/2016 12:09 PM CDT [facility] TRIGLYCERIDES 316(H) <150 mg/dL 09/26/2016 12:09 PM CDT [facility] HDL CHOLESTEROL 42 >40 mg/dL 7 12:09 PM CDT [facility] NON-HDL CHOLESTEROL 156(H) <145 mg/dl 09/26/2016 12:09 PM CDT [facility] CHOL/HDL RATIO 4.71(H) <4.50 09/26/2016 12:09 PM CDT [facility] LDL CHOLESTEROL 93 <=130 mg/dL 09/26/2016 12:09 PM CDT [facility] PATIENT STATUS FASTING 09/26/2016 12:09 PM CDT [facility] Blood BLOOD SPECIMEN / Unknown Venipuncture / Unknown 09/26/2016 11:27 AM CDT 09/26/2016 11:28 AM CDT Alexis Moreno MD CHEMISTRY [facility] [address] [place] [address], * ANTI HIV 1/2 (02/25/2008 10:59 AM CDT) ANTI HIV 1/2 Non-reacti ve [facility] Blood specimen (specimen) BLOOD SPECIMEN / Unknown 02/25/2008 10:59 AM CDT 02/25/2008 10:39 AM CDT Alexis Moreno MD SEND OUTS [facility] [place]NAL ZIP [address] [address] from Last 3 Months or Most Recently Relevant to Health Maintenance Care Teams Package Clerk Relationship Specialty Start Date End Date Pcp, No . PCP - General 07/03/17
--- NOTE | 2024-02-10 09:45 | CRLHL7_ITS ---
For Patients: As a result of the Century Cures Act, medical imaging exams and procedure reports are released immediately into your electronic medical record. You may view this report before your referring provider. If you have questions, please contact your health care provider. DIGITAL DIAGNOSTIC LEFT MAMMOGRAM USING TOMOSYNTHESIS AND COMPUTER-AIDED DETECTION LEFT BREAST ULTRASOUND CLINICAL HISTORY: LEFT breast mass/asymmetry. COMPARISON: 02/03/2024. TECHNIQUE: Digital LEFT mammogram in two projections. Tomosynthesis was used in this interpretation. Computer-aided detection utilized. Real-time ultrasound imaging of LEFT breast with imaging documentation. BREAST COMPOSITION: The breast is heterogeneously dense, which may obscure small masses. FINDINGS: 3D spot compression CC/MLO LEFT breast mammogram images submitted. Decreased conspicuity of previously noted asymmetric density. No architectural distortion or suspicious calcifications. Targeted LEFT breast ultrasound performed at 3 o`clock 7 cm from the nipple. Normal fibroglandular tissue is present. No fluid collection or mass. IMPRESSION: No suspicious findings. Normal fibroglandular tissue. RECOMMENDATIONS: Annual BILATERAL screening mammography. Results and recommendations discussed with the patient. BI-RADS Category 2: Benign A lay language report of this examination will be provided to the patient. Dictated by Alexis Frias MD @ 02/10/2024 10:33:06 AM jj/Dictated by: Alexis Frias MD @ 02/10/2024 10:33:00 AM (Electronically Signed)
--- NOTE | 2024-02-10 10:15 | CRLHL7_ITS ---
For Patients: As a result of the Century Cures Act, medical imaging exams and procedure reports are released immediately into your electronic medical record. You may view this report before your referring provider. If you have questions, please contact your health care provider. PLEASE SEE LEFT BREAST DIAGNOSTIC MAMMOGRAM PERFORMED SAME DAY. CRL:sp SP/Dictated by: Alexis Frias MD @ 02/10/2024 10:33:00 AM (Electronically Signed)
== END 2024-02-10 09:28 | disposition home or self-care (01) ==
LOC: MAMMO 09:28
PROVIDERS: PCP Family Medicine; Visit Provider Family Medicine
DX: N63.20 Unspecified lump in the left breast, unspecified quadrant (principal); R92.2 Inconclusive mammogram; R92.8 Other abnormal and inconclusive findings on diagnostic imaging of breast
CPT/HCPCS: 76642; 77065; G0279

== ENCOUNTER 2024-10-07 11:17 | Outpatient (CLI) | payer BC, SELFPAY | END 2024-10-07 11:18 | disposition home or self-care (01) | PROVIDERS: PCP Family Medicine; Visit Provider Family Medicine | DX: I10 Essential (primary) hypertension (principal); E55.9 Vitamin D deficiency, unspecified; E03.9 Hypothyroidism, unspecified; E11.9 Type 2 diabetes mellitus without complications; E78.2 Mixed hyperlipidemia | CPT/HCPCS: 80048; 80061; 84443; 84460; 85025 ==

== ENCOUNTER 2025-04-13 09:16 | Outpatient (CLI) | payer BC, SELFPAY | END 2025-04-13 09:17 | disposition home or self-care (01) | LOC: NFLDREF 04-15 10:38 | PROVIDERS: PCP Family Medicine; Referring Provider Family Medicine; Visit Provider Family Medicine | DX: E11.9 Type 2 diabetes mellitus without complications (principal) | CPT/HCPCS: 82043; 82570 ==